=== PATIENT | male | born 1980 | race African-American/Black ===

== ENCOUNTER 2016-05-18 21:24 | Emergency (ER) | payer OTHER ==
[~2016-05-18] VITALS: Ht 177.8 cm; Wt 111.1 kg
[~2016-05-18 21:24] MED LIST: BACL10TA PO; BACL20TA PO; LEVE500T56 PO; LEVO25TA4 PO
[2016-05-18 21:38] VITALS: BP 142/72
[2016-05-18] MEDS ORDERED: HYDR-971 PO (22:23)
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
[2016-05-18] MEDS ORDERED: HYDROCODONE/APAP 5/325MG TABLET. PO ONE (22:30)
--- NOTE | 2016-05-19 07:28 | RAD ---
Exam performed: One view chest. Indication: post op pain - IVC filter removed today Date of Service: 05/19/2016 12:10 AM Comparison: None available. Single AP upright portable view chest findings: Cardiomediastinal silhouette is within limits of normal. No acute infiltrates, effusion or pneumothorax is detected. The bony structures are normal. Impression: No acute cardiopulmonary process is detected.
== END 2016-05-18 22:48 | disposition home or self-care (01) ==
LOC: ER 21:24
DX: G89.18 Other acute postprocedural pain (principal); M54.2 Cervicalgia; G89.29 Other chronic pain; F12.10 Cannabis abuse, uncomplicated
CPT/HCPCS: 71010; 99283

== ENCOUNTER 2020-03-27 10:47 | Inpatient (IN) | payer OTHER ==
[~2020-03-27] VITALS: Ht 177.8 cm; Wt 102.2 kg
[~2020-03-27 10:47] MED LIST changes: +HYDR-3164 PO
[2020-03-27] MEDS ORDERED: MORPHINE SULFATE 2 MG/ML VIAL. IV/SQ PRN (11:30)
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
[2020-03-27 12:25] LABS: BASO # 0.1 x10^3/uL (0.0-0.2); BASO % 1 % (0-3); EOS # 0.1 x10^3/uL (0.0-0.7); EOS % 2 % (0-3); HEMATOCRIT 42.7 % (39.0-53.0); HEMOGLOBIN 13.9 g/dL (13.0-17.5); LYMPH % 30 % (24-48); MEAN CORPUSCULAR HEMOGLOBIN 27 pg (25-35); MEAN CORPUSCULAR HGB CONC 33 g/dL (31-37); MEAN CORPUSCULAR VOLUME 82 fL (79-100); MONO # 0.5 x10^3/uL (0.0-1.1); MONO % 8 % (0-9); NEUT % 60 % (31-73); PLATELET COUNT 217 x10^3/uL (140-400); RED BLOOD COUNT 5.18 x10^6/uL (4.30-5.70); RED CELL DISTRIBUTION WIDTH 14.4 % (11.5-14.5); WHITE BLOOD COUNT 6.7 x10^3/uL (4.0-11.0)
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
[2020-03-27 12:33] LABS: CALCIUM 8.5 mg/dL (8.5-10.1); CREATININE 0.7 mg/dL (0.7-1.3); GFR 152.7; POTASSIUM 3.9 mmol/L (3.5-5.1)
[2020-03-27 12:40] LABS: ALBUMIN 3.6 g/dL (3.4-5.0); ALBUMIN/GLOBULIN RATIO 1.1 (1.0-1.7); TOTAL BILIRUBIN 0.5 mg/dL (0.2-1.0); TOTAL PROTEIN 6.8 g/dL (6.4-8.2)
--- NOTE | 2020-03-27 12:42 | RAD ---
CT LUMBAR SPINE WO, CT THORACIC SPINE WO History:Reason: FALL WITH WEAKNESS OF THE ARMS AND LEGS / Spl. Instructions: / History: Technique: Noncontrast CT was performed of the lumbar and thoracic spine. Multiplanar reconstructions were performed. Exposure: One or more of the following individualized dose reduction techniques were utilized for thi s examination: 1. Automated exposure control 2. Adjustment of the mA and/or kV according to patient size 3. Use of iterative reconstruction technique. Comparison: None Findings: Thoracic spine: Mild motion degradation of the lower thoracic spine degraded evaluation. Normal vertebral body height. No fracture. Mild multilevel degenerative disc changes with disc height loss and small posterior disc protrusions. No high-grade canal or neuroforaminal narrowing. Lumbar spine: Normal vertebral body height and alignment. No fracture. Mild degenerative disc changes most prominent L4-5 and L5-S1. Mild lower lumbar facet arthropathy. Mi ld subarticular recess narrowing L4-L5 and L5-S1. No significant canal narrowing. Mild L4-L5 neurofor aminal narrowing. Moderate L5-S1 neuroforaminal narrowing. Impression: 1. No acute fracture or subluxation of the thoracolumbar spine. 2. Multilevel lumbar spondylosis most prominent L4-5 and L5-S1. 3. Neuroforaminal narrowing most prominent L5-S1. Electronically signed by: Earnest Live DO (03/27/2020 12:35 PM) [id number]
[2020-03-27 12:53] LABS: PROTHROMBIN TIME PATIENT 12.3 SEC (11.7-14.0)
[2020-03-27 13:21] LABS: BILIRUBIN,URINE NEGATIVE (NEG); CLARITY,URINE CLEAR; COLOR,URINE YELLOW; NITRITE,URINE NEGATIVE (NEG); PH,URINE 7.5 (<5.0-8.0); PROTEIN,URINE NEGATIVE (NEG-TRACE); UROBILINOGEN,URINE 0.2 mg/dL (0.2 mg/dL)
[2020-03-27 13:31] LABS: BACTERIA,URINE 0 /HPF (0-FEW); RBC,URINE 0 /HPF (0-2); WBC,URINE 0 /HPF (0-4)
[2020-03-27 13:33] LABS: AMPHETAMINE/METHAMPHETAMINE NEG (NEG); BARBITURATES NEG (NEG); BENZODIAZEPINES NEG (NEG); CANNABINOIDS POS (NEG); COCAINE NEG (NEG); METHADONE NEG (NEG); OPIATES POS (NEG); PHENCYCLIDINE NEG (NEG)
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
[2020-03-27] MEDS ORDERED: DIPH,PERTUSS(ACELL),TET VAC/PF 0.5 ML SYRINGE. VAX IM ONE (15:15)
--- NOTE | 2020-03-27 15:20 | RAD ---
EXAM: Right elbow, 3 views HISTORY: Fall. Pain. COMPARISON: None. FINDINGS: 3 views of the right elbow are obtained. There is no fracture, dislocation or subluxation. Evaluation for an elbow effusion is limited due to the absence of a lateral view. IMPRESSION: No acute osseous finding. Electronically signed by: Ting Cooper MD (03/27/2020 3:13 PM) [id number]
[2020-03-27] MEDS ORDERED: TIZA4TAB2 PO (16:59)
[2020-03-27] MEDS ORDERED: DOCUSATE SODIUM 100 MG CAPSULE. PO PRN (17:15)
[2020-03-27] MEDS ORDERED: ACETAMINOPHEN 325 MG TABLET. PO PRN (17:15)
[2020-03-27] MEDS ORDERED: ONDANSETRON PF 4 MG/2 ML VIAL. IV PRN (17:15)
[2020-03-27] MEDS: BACLOFEN 10 MG TABLET. PO SCH (18:00)
[2020-03-27 19:54] VITALS: BP 100/54
[2020-03-27] MEDS: tiZANidine 4 MG TABLET. PO PRN (20:01)
[2020-03-27] MEDS: levETIRAcetam 250 MG TABLET PO SCH (20:01)
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
[2020-03-27 23:04] VITALS: BP 92/52
[2020-03-28] MEDS: DEXAMETHASONE SOD PHOS 4 MG/ML VIAL IVP SCH ×3 (00:41→12:09)
[2020-03-28] MEDS: BACLOFEN 10 MG TABLET. PO SCH ×3 (00:41→12:09)
[2020-03-28 02:52] VITALS: BP 119/65
[2020-03-28 07:24] VITALS: BP 140/72
[2020-03-28] MEDS: levETIRAcetam 250 MG TABLET PO SCH (08:35)
[2020-03-28] MEDS: tiZANidine 4 MG TABLET. PO PRN (09:27)
[2020-03-28 10:35] VITALS: BP 134/59
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
[2020-03-28 14:31] VITALS: BP 127/71
--- NOTE | 2020-03-28 16:19 | PDOC2 ---
CONSULT Date of Consult Date of Consult DATE: 03/28/20 TIME: 16:15 Reason for Consult Reason for Consult: s/p fall, trauma consult Referring Physician Referring Physician: Dr. Gibson Identification/Chief Complaint Chief Complaint loss of strength Source Source: Chart review, Patient History of Present Illness Reason for Visit: 39 yo M s/p fall. Pt initially noted diffuse weakness and loss of strength. Imaging was unremarkable and strength and sensation have returned to baseline. Pt tolerating diet, denies abd pain and passing stools. Past Medical History CENTRAL NERVOUS SYSTEM: Seizure, Other (Right spastic paraplegia) Past Surgical History Past Surgical History: Hernia Repair, Other (craniotomy) Family History Family History: Diabetes, High Cholestrol, Hypertension Social History Quit ALCOHOL: rare Drugs: Marijuana Current Problem List Problem List Problems Medical Problems: (1) Back pain Status: Acute (2) Fall Status: Acute (3) Hemiparesis Status: Acute Current Medications Current Medications Current Medications Morphine Sulfate (Morphine Sulfate) 2 mg PRN Q15MIN PRN IV/SQ PAIN GREATER THAN 3/10 Last administered on 03/27/20at 12:11; Start 03/27/20 at 11:30; Stop 03/28/20 at 11:29; Status DC Diphtheria/ Tetanus/Acell Pertussis (ADACEL TDap SYRINGE) 0.5 ml ONCE ONCE VAX IM Last administered on 03/27/20at 16:27; Start 03/27/20 at 15:15; Stop 03/27/20 at 15:16; Status DC Levetiracetam (Keppra) 250 mg BID PO Last administered on 03/28/20at 08:35; Start 03/27/20 at 21:00 Tizanidine HCl (Zanaflex) 4 mg PRN TID PRN PO MUSCLE SPASMS Last administered on 03/28/20at 09:27; Start 03/27/20 at 21:00 Baclofen (Lioresal) 10 mg Q6HRS PO Last administered on 03/28/20at 12:09; Start 03/27/20 at 18:00 Ondansetron HCl (Zofran) 4 mg PRN Q4HRS PRN IV NAUSEA/VOMITING; Start 03/27/20 at 17:15 Acetaminophen (Tylenol) 650 mg PRN Q4HRS PRN PO TEMP OVER 100.4F OR MILD PAIN; Start 03/27/20 at 17:15 Docusate Sodium (Colace) 100 mg PRN BID PRN PO HARD STOOLS; Start 03/27/20 at 17:15 Dexamethasone Sodium Phosphate (Decadron) 4 mg Q6HRS IVP Last administered on 03/28/20at 12:09; Start 03/28/20 at 00:00; Stop 03/28/20 at 14:24; Status DC Active Scripts Active Reported Tizanidine Hcl 4 Mg Tablet 1 Tab PO TID Baclofen 20 Mg Tablet 1 Tab PO Q6HRS Keppra (Levetiracetam) 500 Mg Tablet 250 Mg PO BID Allergies Allergies: Coded Allergies: No Known Drug Allergies (Unverified , 04/14/14) ROS Neurological: Yes Numbness/Tingling, Yes Weakness Physical Exam General: Alert, Oriented X3, Cooperative, No acute distress HEENT: Atraumatic, Other (somewhat dysconjugate gaze) Lungs: Normal air movement Abdomen: Soft, No tenderness Extremities: No clubbing, No cyanosis Skin: No rashes, No breakdown Neuro: Normal speech, Sensation intact, Other (somewhat decreased strength RUQ, chronic) Vitals VITALS Vital Signs Date Time Temp Pulse Resp B/P (MAP) Pulse Ox O2 Delivery O2 Flow Rate FiO2 03/28/20 14:31 98.5 98 18 127/71 (89) 97 Room Air 98.5 Labs Labs Laboratory Tests Test 03/27/20 12:00 03/27/20 12:44 White Blood Count 6.7 x10^3/uL (4.0-11.0) Red Blood Count 5.18 x10^6/uL (4.30-5.70) Hemoglobin 13.9 g/dL (13.0-17.5) Hematocrit 42.7 % (39.0-53.0) Mean Corpuscular Volume 82 fL (79-100) Mean Corpuscular Hemoglobin 27 pg (25-35) Mean Corpuscular Hemoglobin Concent 33 g/dL (31-37) Red Cell Distribution Width 14.4 % (11.5-14.5) Platelet Count 217 x10^3/uL (140-400) Neutrophils (%) (Auto) 60 % (31-73) Lymphocytes (%) (Auto) 30 % (24-48) Monocytes (%) (Auto) 8 % (0-9) Eosinophils (%) (Auto) 2 % (0-3) Basophils (%) (Auto) 1 % (0-3) Neutrophils # (Auto) 4.0 x10^3/uL (1.8-7.7) Lymphocytes # (Auto) 2.0 x10^3/uL (1.0-4.8) Monocytes # (Auto) 0.5 x10^3/uL (0.0-1.1) Eosinophils # (Auto) 0.1 x10^3/uL (0.0-0.7) Basophils # (Auto) 0.1 x10^3/uL (0.0-0.2) Prothrombin Time 12.3 SEC (11.7-14.0) Prothromb Time International Ratio 1.0 (0.8-1.1) Activated Partial Thromboplast Time 31 SEC (24-38) Sodium Level 141 mmol/L (136-145) Potassium Level 3.9 mmol/L (3.5-5.1) Chloride Level 105 mmol/L (98-107) Carbon Dioxide Level 26 mmol/L (21-32) Anion Gap 10 (6-14) Blood Urea Nitrogen 15 mg/dL (8-26) Creatinine 0.7 mg/dL (0.7-1.3) Estimated GFR (Cockcroft-Gault) 152.7 BUN/Creatinine Ratio 21 (6-20) Glucose Level 110 mg/dL (70-99) Calcium Level 8.5 mg/dL (8.5-10.1) Total Bilirubin 0.5 mg/dL (0.2-1.0) Aspartate Amino Transf (AST/SGOT) 29 U/L (15-37) Alanine Aminotransferase (ALT/SGPT) 49 U/L (16-63) Alkaline Phosphatase 70 U/L (46-116) Total Protein 6.8 g/dL (6.4-8.2) Albumin 3.6 g/dL (3.4-5.0) Albumin/Globulin Ratio 1.1 (1.0-1.7) Ethyl Alcohol Level < 10 mg/dL (0-10) Urine Collection Type Unknown Urine Color Yellow Urine Clarity Clear Urine pH 7.5 (<5.0-8.0) Urine Specific [place] 1.025 (1.000-1.030) Urine Protein Negative mg/dL (NEG-TRACE) Urine Glucose (UA) Negative mg/dL (NEG) Urine Ketones (Stick) Negative mg/dL (NEG) Urine Blood Negative (NEG) Urine Nitrite Negative (NEG) Urine Bilirubin Negative (NEG) Urine Urobilinogen Dipstick 0.2 mg/dL (0.2 mg/dL) Urine Leukocyte Esterase Negative (NEG) Urine RBC 0 /HPF (0-2) Urine WBC 0 /HPF (0-4) Urine Squamous Epithelial Cells Occ /LPF Urine Bacteria 0 /HPF (0-FEW) Urine Mucus Slight /LPF Urine Opiates Screen Pos (NEG) Urine Methadone Screen Neg (NEG) Urine Barbiturates Neg (NEG) Urine Phencyclidine Screen Neg (NEG) Urine Amphetamine/Methamphetamine Neg (NEG) Urine Benzodiazepines Screen Neg (NEG) Urine Cocaine Screen Neg (NEG) Urine Cannabinoids Screen Pos (NEG) Urine Ethyl Alcohol Neg (NEG) Images Images imaging reviewed and unremarkable Assessment/Plan Assessment/Plan weakness s/p fall appreciate neurosurg evaluation and OK to d/c home. Thanks for consult! ELAINE AMARAL MD Mar 28, 2020 16:19
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
--- NOTE | 2020-03-28 17:58 | NUR ---
Pt. discharged to home with Rx, verbalized understanding of discharge instructions.
== END 2020-03-28 18:01 | disposition home or self-care (01) | DRG 605 ==
LOC: ER 10:47 → ED HOLD 14:17 → 4 NORTH 16:36
PROVIDERS: ADMIT Internal Medicine; ATTEND Internal Medicine
DX: S50.311A Abrasion of right elbow, initial encounter (principal); G82.20 Paraplegia, unspecified; G81.94 Hemiplegia, unspecified affecting left nondominant side; G81.11 Spastic hemiplegia affecting right dominant side; G89.29 Other chronic pain; Z96.649 Presence of unspecified artificial hip joint; M21.371 Foot drop, right foot; M24.541 Contracture, right hand; G93.89 Other specified disorders of brain; M47.816 Spondylosis without myelopathy or radiculopathy, lumbar region; M51.37 Other intervertebral disc degeneration, lumbosacral region; W00.0XXA Fall on same level due to ice and snow, initial encounter; Y92.89 Other specified places as the place of occurrence of the external cause; Y93.89 Activity, other specified; Y99.8 Other external cause status; Z87.891 Personal history of nicotine dependence; Z83.3 Family history of diabetes mellitus; Z82.49 Family history of ischemic heart disease and other diseases of the circulatory system
CPT/HCPCS: 36415; 70450; 72125; 72128; 72131; 72141; 73080; 80053; 80307; 81001; 85025; 85610; 85730; 86850; 86900; 86901; 90471; 90715; 96374; 99285; G0480; J1100; J2270; 97116-GP; G0378